=== PATIENT | female | born 1985 | race Caucasian/White ===

== ENCOUNTER 2019-06-20 17:13 | Emergency (ER) | payer BC ==
[2019-06-20] MEDS ORDERED: PROPARACAINE HCL OPTH 15ML BTL OPTH ONE (17:18)
--- NOTE | 2019-06-20 17:24 | Emergency Department Record ---
History of Present Illness - General Stated Complaint: RT EYE FORLEIGN OBJECT Time Seen by Provider: 06/20/19 17:18 Source: Patient Mode of Arrival: Ambulatory Limitations: No limitations - History of Present Illness Initial Comments: 34 yo female presents with back pain for one week. She states she has chronic back pain but this past week it has been worse. She has a history of a bulging disc with right sided sciatica. No weakness or foot drop. No fevers or trauma. The pain starts in the lumbar area and radiates intermittently to the right leg. At times her toes tingle. No weakness. No incontinence. No groin sensory changes. No history of surgery. Her last MRI was several years ago. She has been through physical therapy several times. PCP is the [facility]. MD Complaint: Back pain -: Week(s) (1) Place: Home Radiation: Right leg Severity: Moderate Quality: Aching, Sharp, Stabbing Consistency: Constant Improves With: Immobilization Worsens With: Movement, Walking Context: Turning/twisting Associated Symptoms: Denies other symptoms Treatments Prior to Arrival: Acetaminophen, NSAIDS - Related Data Previous Rx's Medication Instructions Recorded Hydrocodone/Acetaminophen [[place] 1 each PO Q6H #10 tablet 06/20/19 5-325 Tablet] Methylprednisolone [Medrol Dose 0 mg PO UD #1 tab.ds.pk 06/20/19 Pack] Review of Systems Constitutional: Denies: Chills, Fever, Malaise, Weakness Eyes: Denies: Eye discharge, Eye pain, Photophobia, Vision change ENT: Denies: Congestion, Throat pain Respiratory: Denies: Cough, Dyspnea, Hemoptysis, Wheezes Cardiovascular: Denies: Chest pain, Palpitations, Syncope Endocrine: Denies: Fatigue Gastrointestinal: Denies: Abdominal pain, Diarrhea, Nausea, Vomiting Musculoskeletal: Reports: Back pain, Myalgia. Denies: Arthralgia, Joint swelling Skin: Denies: Bruising, Change in color, Rash Neurological: Reports: Tingling (intermittently in the toes on the R). Denies: Confusion, Numbness, Weakness Psychiatric: Denies: Anxiety Hematological/Lymphatic: Denies: Easy bleeding, Easy bruising Physical Exam - General General Appearance: Alert, Oriented x3, Cooperative, No acute distress Limitations: No limitations - Head Head exam: Atraumatic, Normal inspection - Eye Eye exam: Normal appearance. negative: Conjunctival injection - ENT ENT exam: Normal exam, Mucous membranes moist Ear exam: Normal external inspection Nasal Exam: Normal inspection Mouth exam: Normal external inspection - Neck Neck exam: Normal inspection, Full ROM - Respiratory Respiratory exam: Normal lung sounds bilaterally. negative: Respiratory distress - Cardiovascular Cardiovascular Exam: Regular rate, Normal rhythm, Normal heart sounds Peripheral Pulses: 2+: Dorsalis Pedis (R) - GI/Abdominal GI/Abdominal exam: Soft. negative: Distended, Guarding, Tenderness - Rectal Rectal exam: Deferred - exam: Deferred - Extremities Extremities exam: Normal inspection, Full ROM, Normal capillary refill. negative: Calf tenderness, Pedal edema, Tenderness Image of Full Body: 1 - tender lower lumbar into the buttocks - Back Back exam: Reports: Normal inspection, Muscle spasm, Paraspinal tenderness, Tenderness, Vertebral tenderness. Denies: Full ROM, Rash noted - Neurological Neurological exam: Alert, Normal gait, Oriented X3, Reflexes normal, Other (negative straight leg raise, pain only in the lumbar spine, no foot drop, no weakness with plantar or dorsi foot flexion). negative: Abnormal gait, Altered, Motor sensory deficit - Psychiatric Psychiatric exam: Normal affect, Normal mood - Skin Skin exam: Dry, Intact, Normal color, Warm Disposition Disposition: Discharge Clinical Impression: Lumbar spine strain Qualifiers: Encounter type: initial encounter Qualified Code(s): S39.012A - Strain of muscle, fascia and tendon of lower back, initial encounter Sciatica Qualifiers: Laterality: right Qualified Code(s): M54.31 - Sciatica, right side Disposition: Home, Self-Care Condition: (1) Good Instructions: Sciatica (ED) Additional Instructions: Call your doctor for the next available follow up appointment to recheck your back pain Return to the ER for a recheck if worse, any new concerns or questions Take the prescriptions provided as directed Prescriptions: Methylprednisolone [Medrol Dose Pack] 0 mg PO UD #1 tab.ds.pk Hydrocodone/Acetaminophen [[place] 5-325 Tablet] 1 each PO Q6H #10 tablet Quality - Blood Pressure Screening Does Patient Have Any of the Following: No Systolic Measurement: ~
[2019-06-20] MEDS ORDERED: Diph,Pert(Acell),Tet Vac 0.5 ML SYR IM ONE (17:45)
[2019-06-20] MEDS ORDERED: DIPHENHYDRAMINE HCL 25 MG CAPSULE PO ONE (17:45)
[2019-06-20] MEDS ORDERED: ERYTHROMYCIN OPTH OINT 3.5GM OPTH ONE (17:45)
--- NOTE | 2019-06-20 17:52 | Emergency Department Record ---
History of Present Illness - General Chief complaint: Eye Problem Stated complaint: RT EYE FORLEIGN OBJECT Time Seen by Provider: 06/20/19 17:18 Source: Patient Mode of Arrival: Ambulatory Limitations: No limitations - History of Present Illness Initial comments: 34 yo female presents with a possible injury to her right eye. She reports she was outside smoking and thinks some mohamud from the cigarette went into her right eye. The eye is itchy, red with some mild chemosis. She does not have any history of eye disease. No contacts or glasses. The discomfort is most intense lateral. The symptoms started around 4:30pm She did rub the eyes some when it occurred. No other dirt or debris went into the eye that she is aware of. She is unsure when her last tetanus shot was given. MD chief complaint: Eye pain, Eye redness, Foreign body Onset/Timin -: Week(s) (1) Onset Description: Sudden Location: Right eye Place: Home If Injury: Other Eye Symptoms: Blurry vision, Pain, Redness Severity: Moderate Severity scale (1-10): 4 If Pain, Quality: Burning, Sharp, Stabbing Consistency: Constant Context: Other Associated Symptoms: None Treatments Prior to Arrival: Irrigated eye - Related Data With correction: No Home Medications Medication Instructions Recorded Confirmed Last Taken Amlodipine Besylate [Norvasc] 5 mg PO DAILY 06/20/19 06/20/19 Unknown Sertraline HCl [Zoloft] 100 mg PO DAILY 06/20/19 06/20/19 Unknown Tramadol HCl 50 mg PO ASDIR 06/20/19 06/20/19 Unknown Allergies Allergy/AdvReac Type Severity Reaction Status Date / Time No Known Drug Allergies Allergy Verified 06/20/19 17:31 Travel Screening - Travel/Exposure Within Last 30 Days Have you traveled within the last 30 days?: No Review of Systems Constitutional: Denies: Chills, Fever, Malaise, Weakness Eyes: Reports: Eye pain, Other (redness). Denies: Eye discharge, Photophobia, Vision change ENT: Denies: Congestion, Throat pain Respiratory: Denies: Cough, Dyspnea, Hemoptysis, Wheezes Cardiovascular: Denies: Chest pain, Palpitations, Syncope Endocrine: Denies: Fatigue Gastrointestinal: Denies: Abdominal pain, Diarrhea, Nausea, Vomiting Musculoskeletal: Denies: Arthralgia, Back pain, Joint swelling, Myalgia Skin: Denies: Bruising, Change in color, Rash Neurological: Denies: Confusion, Headache, Numbness, Tingling, Weakness Psychiatric: Denies: Anxiety Hematological/Lymphatic: Denies: Easy bleeding, Easy bruising Past Medical History - SOCIAL HISTORY Smoking Status: Current every day smoker Alcohol Use: Occasional Drug Use: None - RESPIRATORY Hx Respiratory Disorders: No - CARDIOVASCULAR Hx Cardio Disorders: Yes Hx Hypertension: Yes - NEURO Hx Neuro Disorders: Yes Hx Headaches: Yes - GI Hx GI Disorders: No - Hx Genitourinary Disorders: No - ENDOCRINE Hx Endocrine Disorders: No - MUSCULOSKELETAL Hx Musculoskeletal Disorders: Yes - PSYCH Hx Psych Problems: No - HEMATOLOGY/ONCOLOGY Hx Hematology/Oncology Disorders: No Family Medical History Any Significant Family History?: No Physical Exam - General General Appearance: Alert, Oriented x3, Cooperative, No acute distress Limitations: No limitations - Head Head exam: Atraumatic, Normocephalic, Normal inspection - Eye Eye exam: PERRL, Conjunctival injection (very mild mostly lateral injection in the right eye), EOMI, Other (Normal lids). negative: Normal appearance, Periorbital swelling, Periorbital tenderness Pupils: Normal accommodation. negative: Irregular, Unequal Visual acuity (L) = 20/: 20 Visual acuity (R) = 20/: 20 With correction: No - ENT ENT exam: Normal exam, Mucous membranes moist Ear exam: Normal external inspection Nasal Exam: Normal inspection Mouth exam: Normal external inspection - Neck Neck exam: Normal inspection - Extremities Extremities exam: Normal inspection - Neurological Neurological exam: Alert, Oriented X3 - Psychiatric Psychiatric exam: Normal affect, Normal mood. negative: Agitated, Anxious - Skin Skin exam: Dry, Intact, Normal color, Warm Course Vital Signs 06/20/19 17:23 Temperature 98.1 F Pulse Rate [ 89 Pulse Ox Probe] Respiratory 16 Rate Blood Pressure 145/93 [Left Arm] Pulse Ox 99 - Reevaluation(s) Reevaluation #1: 06/20/19 17:51 VA is 20/20 Slit Lamp examination completed with stain The AC is clear. No hyphema, no abnormal cells The superficial conjuctiva is slightly raised consistent with chemosis that is mild laterally and at the medial most point No subconjunctival blood There is very faint, minimal uptake of stain just inferior and lateral to the iris. No streaming The patient did get complete relief with the topical Alcaine The symptoms may be from a superficial burn or possibly allergic with the chemosis The patient was instructed to take Benadryl, ice packs, and use erythromycin She was instructed to return if worse and to recheck in the ED if not improved in the next 12-24 hours 06/20/19 18:23 Disposition Disposition: Discharge Clinical Impression: Corneal abrasion Qualifiers: Encounter type: initial encounter Laterality: right Qualified Code(s): S05.01XA - Injury of conjunctiva and corneal abrasion without foreign body, right eye, initial encounter Disposition: Home, Self-Care Condition: (1) Good Instructions: Corneal Abrasion (ED) Additional Instructions: Use the erythromycin ointment every 4 hours Take Motrin for pain Take the Benadryl every 4 hours if itches Use and ice pack every 4 hours to minimize swelling Return in the next 12-24 hours for a recheck if not improved and return immediately if worse Forms: Patient Portal Access Time of Disposition: 17:51 Quality - Quality Measures Quality Measures: N/A - Blood Pressure Screening Does Patient Have Any of the Following: No Blood Pressure Classification: Hypertensive Reading Systolic Measurement: 145 Diastolic Measurement: 93 Screening for High Blood Pressure: < Pre-Hypertensive BP, F/U Documented > [[id number]] Pre-Hypertensive Follow-up Interventions: Referral to alternative/primary care provider.
== END 2019-06-20 18:10 | disposition home or self-care (01) ==
LOC: ER 17:13
DX: S05.01XA Injury of conjunctiva and corneal abrasion without foreign body, right eye, initial encounter (principal); X58.XXXA Exposure to other specified factors, initial encounter; I10 Essential (primary) hypertension; F17.210 Nicotine dependence, cigarettes, uncomplicated; Y92.007 Garden or yard of unspecified non-institutional (private) residence as the place of occurrence of the external cause
CPT/HCPCS: 90715; 96372; 99283